=== PATIENT | male | born 1940 | race Caucasian/White ===

== ENCOUNTER → 2024-08-16 | Outpatient (CLI) | payer MEDICARE, BC, SELFPAY ==
[2024-08-16 08:34] LABS: Basophils % (Auto) 1 % (0-2.5); Eosinophils # (Auto) 0.3 Thou/mm3 (0.0-0.5); Eosinophils % (Auto) 4 % (0-10); Hematocrit 44.3 % (41.0-53.0); Hemoglobin 14.7 g/dL (13.5-16.0); Immature Granulocytes % (Auto) 0 % (0-0); Immature Granulocytes Auto 0.02 Thou/mm3 (0.00-0.00); Lymphocytes # (Auto) 2.4 Thou/mm3 (1.0-4.8); Lymphocytes % (Auto) 32 % (10-50); Mean Corpuscular HGB Conc 33.2 g/dl (31.0-37.0); Mean Corpuscular Hemoglobin 30.9 pg (25.0-35.0); Mean Corpuscular Volume 93 fL (80-100); Monocytes # (Auto) 0.8 Thou/mm3 (0.0-0.8); Monocytes % (Auto) 11 % (0-12); Neutrophils % (Auto) 53 % (37-80); Nucleated Red Blood Cell % 0 /100 WBC (0); Platelet Count 289 Thou/mm3 (140-440); RDW Standard Deviation 48.5 fL (35.1-43.9); Red Blood Count 4.75 Miln/mm3 (4.50-5.90); White Blood Count 7.5 Thou/mm3 (3.8-10.6)
[2024-08-16 08:45] LABS: Glucose Estimated Average 117 mg/dL (80-131); Hemoglobin A1C 5.7 % Hgb (4.8-6.0)
[2024-08-16 08:56] LABS: Prostate Specific Antigen 1.13 ng/mL (0-4.00)
[2024-08-16 09:05] LABS: Alanine Aminotransferase 23 U/L (10-49); Albumin, Serum 4.1 gm/dL (3.4-4.8); Albumin/Globulin Ratio 1.7 (1.2-2.2); Alkaline Phosphatase 76 U/L (46-116); Anion Gap 6 (7-16); Aspartate Amino Transferase 22 U/L (0-34); BUN/Creatinine Ratio 22 Ratio (12-20); Bilirubin,Total 0.4 mg/dL (0.3-1.2); Blood Urea Nitrogen 22 mg/dL (9-23); Carbon Dioxide 28.7 mMol/L (20.0-31.0); Cardiac Risk Estimate 2.5 RATIO (4.0-6.7); Chloride 106 mMol/L (98-107); Cholesterol 172 mg/dL (132-200); Globulin 2.4 gm/dL (2.3-3.5); Glucose 107 mg/dL (74-106); HDL Cholesterol 69 mg/dL (40-60); LDL Cholesterol,Calculated 89 mg/dL (0-130); Osmolality,Calculated 284 (275-295); Phenytoin (Dilantin) 8.5 mcg/mL; Potassium 4.5 mMol/L (3.4-5.1); Sodium 141 mMol/L (136-145); Thyroid Stimulating Hormone 2.11 uIU/mL (0.55-4.78); Total Protein 6.5 gm/dL (5.7-8.2); Triglycerides 71 mg/dL (30-150); eGFR > 60 See Note
== END | disposition home or self-care (01) ==
LOC: COPL 06:38
PROVIDERS: PCP Family Medicine; Referring Provider Nurse Practitioner Family; Visit Provider Nurse Practitioner Family
DX: Z00.00 Encounter for general adult medical examination without abnormal findings (principal); R73.03 Prediabetes; N40.1 Benign prostatic hyperplasia with lower urinary tract symptoms; G40.309 Generalized idiopathic epilepsy and epileptic syndromes, not intractable, without status epilepticus
CPT/HCPCS: 36415; 80053; 80061; 80185; 83036; 84153; 84443; 85025

== ENCOUNTER → 2024-08-28 | Outpatient (CLI) | payer MEDICARE, BC, SELFPAY ==
--- NOTE | 2024-08-28 14:40 | XR_ITS ---
Examination: Wrist, left 3 views Technique: Wrist AP, oblique, lateral 3 views Date and time of exam: August 20, 2024 1449 hours INDICATIONS: Patient fell 3 months ago with injury to the wrist, wrist pain FINDINGS: No acute fracture Soft tissue swelling about the fifth metacarpal phalangeal joint IMPRESSION: No acute fracture
--- NOTE | 2024-08-28 14:40 | XR_ITS ---
Examination: Hand, left 3 views Technique: Hand AP, oblique, lateral 3 views Date and time of exam: August 20, 2024 1449 hours INDICATIONS: Patient fell 3 months ago with injury to the hand, hand pain. FINDINGS: Moderate juxta-articular bone demineralization Soft tissue swelling about the fifth metacarpal phalangeal joint No acute fracture IMPRESSION: No acute fracture
== END | disposition home or self-care (01) ==
LOC: CDIM 14:24
PROVIDERS: PCP Family Medicine; Referring Provider Nurse Practitioner Gerontology; Visit Provider Nurse Practitioner Gerontology
DX: S69.92XA Unspecified injury of left wrist, hand and finger(s), initial encounter (principal); W19.XXXA Unspecified fall, initial encounter
CPT/HCPCS: 73110; 73130

== ENCOUNTER 2025-02-16 12:23 | Day surgery (SDC) | payer MEDICARE, BC, SELFPAY ==
[2025-02-15 13:46] VITALS: BMI 23.1
[2025-02-16] VITALS (10 sets, daily range): BP systolic 122–164; BP diastolic 63–88; PULSE 54–65; RESP 12–19; TEMP 36.5–36.7; O2SAT 92–100
[2025-02-16] MEDS: SODIUM CHLORIDE 0.9% 500 ML 500 ML 20 ML IV (14:00)
[2025-02-16] MEDS: fentaNYL CIT INJ 50 mCg/ML AMP 2ML (ASD USE ONLY) IVP (14:05)
[2025-02-16] MEDS: MIDAZOLAM INJ 1 MG/ML VIAL 2 ML (ASD USE ONLY) 2 MG IVP (14:05)
--- NOTE | 2025-02-16 15:13 | SUR.PHASEII ---
1450 CALL TO PATIENT'S RIDE ROCHELLE COMPLETED. ROCHELLE STATES HE IS ON THE WAY. 1500 PATIENT IN WHEELCHAIR DRINKING WATER AWAITING ROCHELLE'S ARRIVAL. 1510 PATIENT CONTINUES TO REST IN WHEELCHAIR, STILL WAITING FOR ROCHELLE.
--- NOTE | 2025-02-16 15:25 | SUR.PHASEII ---
1515 PATIENT'S FRIEND ARRIVED. D/C INSTRUCTIONS GIVEN. ROCHELLE VERBALIZES UNDERSTANDING. 1525 PATIENT DISCHARGED HOME.
== END 2025-02-16 15:25 | disposition home or self-care (01) ==
PROVIDERS: PCP Family Medicine; Referring Provider Specialist; Visit Provider Specialist
PROC: 0DBE8ZX Excision of Large Intestine, Via Natural or Artificial Opening Endoscopic, Diagnostic (ICD-10-PCS; CPT 45380; principal; 2025-02-16 12:45)
DX: Z12.11 Encounter for screening for malignant neoplasm of colon (principal); K64.1 Second degree hemorrhoids; K57.30 Diverticulosis of large intestine without perforation or abscess without bleeding
CPT/HCPCS: G0121; A4217; A4649; J1200; J2250; J3010; J7999

== ENCOUNTER → 2025-04-03 | Outpatient (CLI) | payer MEDICARE, BC, SELFPAY ==
--- NOTE | 2025-04-03 08:21 | EKG_ITS ---
[facility] Test Date: 2025-04-03 Pat Name: WALTER REICH Department: Room: - Gender: Male Volunteer Services Coordinator: SHEILA : 1940 Requested By: Walter Cuenca Order Number: [id number] Reading MD: Walter Cuenca Measurements Intervals [place] Rate: 67 P: 74 VA: 203 QRS: 60 QRSD: 75 T: 62 QT: 398 QTc: 422 Interpretive Statements SINUS RHYTHM No previous ECG available for comparison /store/S0/[id number]/[id number].pdf
== END | disposition home or self-care (01) ==
LOC: SEKG 08:14
PROVIDERS: PCP Family Medicine; Referring Provider Ophthalmology; Visit Provider Ophthalmology
DX: Z01.810 Encounter for preprocedural cardiovascular examination (principal); Z01.818 Encounter for other preprocedural examination
CPT/HCPCS: 93005